=== PATIENT | male | born 1955 | race Caucasian/White ===

== ENCOUNTER → 2017-03-02 | Outpatient (CLI) | payer OTHER ==
--- NOTE | 2017-03-02 15:17 | PCVCIMAG ---
EXAM: BILATERAL RENAL ULTRASOUND AND BILATERAL RENAL DUPLEX INDICATION: Hypertension FINDINGS: Right kidney: Length measures 11.9 cm. No hydronephrosis or extensive renal scarring. 1.8 x 1.9 x 2.3 cm benign cyst lower pole. Right renal duplex: Adequate technical quality. No sonographic evidence of renal artery stenosis. The aortic to renal artery ratio is 1.3. The renal vein is patent. Left kidney: Length measures 11.2 cm. No hydronephrosis or extensive renal scarring. 1.6 x 1.7 x 2.0 cm benign cyst mid/lower pole. Incidental note is made of a 1.2 cm echogenic focus with shadowing in the lower pole likely a renal calculus. Left renal duplex: Adequate technical quality. No sonographic evidence of renal artery stenosis. The aortic to renal artery ratio is 1.3. The renal vein is patent. Bladder: No obvious abnormalities. IMPRESSION: No significant renal artery stenosis. No hydronephrosis bilaterally. Probable calculus left lower pole. LOC:[place] [id number]
== END | disposition home or self-care (01) ==
LOC: PCVCIMAG 09:11
PROVIDERS: ATTEND Internal Medicine
DX: I10 Essential (primary) hypertension (principal); N28.1 Cyst of kidney, acquired; E78.00 Pure hypercholesterolemia, unspecified; M19.90 Unspecified osteoarthritis, unspecified site; Z87.442 Personal history of urinary calculi
CPT/HCPCS: 36415; 76770; 93975

== ENCOUNTER → 2019-05-30 | Outpatient (CLI) | payer OTHER ==
[~2019-05-30] MED LIST: REGADENOSON 0.4 MG/5 ML DISP.SYRIN. IV ONE
--- NOTE | 2019-05-30 09:23 | PCVCIMAG ---
APPROVED REPORT Study performed: 05/30/2019 08:01:12 EXAM: Comprehensive 2D, Doppler, and color-flow Echocardiogram Patient Location: Echo lab Status: routine BSA: 2.13 HR: 57 bpmBP: 140/90 mmHg Rhythm: NSR Other Information Study Quality: Adequate Risk Factors: Cardiac Risk Factors: HTN, Hyperlipidemia Indications Dyspnea Fatigue 2D Dimensions IVSd: 10.84 (7-11mm)LVOT Diam: 21.41 (18-24mm) LVDd: 43.41 mm PWd: 13.16 (7-11mm)Ascending Ao: 31.43 (22-36mm) LVDs: 32.88 (25-40mm) Left Atrium: 33.92 (27-40mm) Aortic Root: 34.15 mm LV Single Plane 4CH: 56.99 % LV Single Plane 2CH: 65.16 % Biplane EF: 60.6 % Volumes Left Atrial Volume (Systole) Single Plane 4CH: 46.09 mLSingle Plane 2CH: 46.13 mL LA ESV Index: 22.00 mL/m2 Aortic Valve AoV Peak Jesus.: 1.43 m/s AO Peak Gr.: 8.22 mmHgLVOT Max P.98 mmHg LVOT Max V: 1.00 m/s GRACIELA Vmax: 2.51 cm2 Mitral Valve E/A Ratio: 1.0 MV Decel. Time: 284.65 ms MV E Max Jesus.: 0.82 m/s MV A Jesus.: 0.82 m/s TDI E/Lateral E': 8.20E/Medial E': 10.25 Medial E' Jesus.: 0.08 m/s Lateral E' Jesus.: 0.10 m/s Pulmonary Valve PV Peak Gr.: 2.08 mmHg Pulmonary Vein P Vein S: 0.56 m/sP Vein A: 0.45 m/s P Vein D: 0.44 m/sP Vein A Dur.: 114.2 msec P Vein S/D Ratio: 1.27 Left Ventricle The left ventricle is normal size. There is normal LV segmental wall motion. There is normal left ventricular wall thickness. Left ventricular systolic function is normal. The left ventricular ejection fraction is within the normal range. LVEF is 60-65%. Right Ventricle The right ventricle is normal size. The right ventricular systolic function is normal. Atria The left atrium size is normal. The right atrium size is normal. Aortic Valve The aortic valve is normal in structure. No aortic regurgitation is present. There is no aortic valvular stenosis. Mitral Valve The mitral valve is normal in structure. There is no mitral valve regurgitation noted. No evidence of mitral valve stenosis. Tricuspid Valve The tricuspid valve is normal in structure. There is no tricuspid valve regurgitation noted. Pulmonic Valve The pulmonary valve is normal in structure. There is no pulmonic valvular regurgitation. Great Vessels The aortic root is normal in size. IVC is normal in size and collapses >50% with inspiration. Pericardium There is no pericardial effusion. <Conclusion> The left ventricle is normal size. LVEF is 60-65%. The aortic valve is normal in structure. The mitral valve is normal in structure. The tricuspid valve is normal in structure. The pulmonary valve is normal in structure. There is no pericardial effusion.
--- NOTE | 2019-05-31 12:28 | PCVCIMAG ---
APPROVED REPORT Imaging Protocol: Rest Tc-99m/Stress Tc-99m 1 day Study performed: 05/30/2019 09:03:13 Indication: Dyspnea, Progressive Fatigue Patient Location: Out-Patient Stress Nurse: Randee Villalta RN, Eula Lema RN [place] Tech:Dhruv Drew NMB Ht: 6 ft 1 in Wt: 195 lbs BSA: 2.13 m2 HR: 55 bpm BP: 164/85 mmHg BMI: 25.7 Rhythm: Sinus Bradycardia Medical History Medical History: Age, Hyperlipidemia, HTN Medications: Amlodipine, Atorvastatin, Chlorthalidone, Losartan, Metoprolol Allergies: PCN Resting Data Rest SPECT myocardial perfusion imaging was performed in supine position 45 minutes following the intravenous injection of 11.7 mCi of Tc-99m Sestamibi. Time of rest injection: 0850 Date: 05/30/2019 Administration Route: IV Administration Site: Right Hand Pharmacologic Stress Pharmacologic stress test was performed by injecting Regadenoson 0.4 mg IV push over 10-15 seconds immediately followed by the intravenous injection of 34.4 mCi of Tc-99m Sestamibi. Time of stress injection: 1000 Date: 05/30/2019 Administration Route: IV Administration Site: Right Hand Gated Stress SPECT was performed 45 minutes after stress injection. The images were gated to evaluate regional wall motion and calculate left ventricular ejection fraction. Stress Test Details Stress Test: Pharmacologic stress testing performed using 0.4 mg of regadenoson per 5 mL given IV over 10 seconds. Reason for pharmacologic stress test: Progressive weakness. HRMax Heart Rate (APMHR): 157 bpm Resting HR: 55 bpmTarget HR (85% APMHR): 133 bpm Max HR Achieved: 96 bpm % of APMHR: 61 Recovery HR: 79 bpm BP Resting BP: 164/85 mmHg Max BP: 130/66 mmHg Recovery BP: 130/73 mmHg ECG Resting ECG: Sinus Bradycardia Stress ECG: Sinus Rhythm Arrhythmia: PVC's Recovery ECG: Sinus Rhythm Clinical Reason for Termination: Completed protocol Stress Symptoms: Lightheaded, Dyspnea Symptoms resolved with caffeine. Stress ECG Conclusion 1. Adequate response from intravenous Lexiscan 2. Inadequate heart rate response for ECG diagnosis Study Data Post stress, the left ventricular ejection was 61%.. SSS: 0 SRS: 1 SDS: 0 TID = 1.11. Perfusion There is a medium area of moderately reduced uptake in the entire segment of the inferior wall which is seen on the stress images as well as the resting images. This area thickens and moves normally and is most consistent with attenuation artifact. Nuclear Conclusion ECG Findings: non-diagnostic Clinical Findings: negative for ischemia Nuclear Findings: negative for ischemia Exercise Capacity: not assessed Left Ventricular Function: normal 1. Low risk study based on absence of inducible ischemia 2. Post exercise left ventricular ejection fraction 61% with normal contractility Interpreted by: Samara Dennis MD Electronically Approved: 05/31/2019 12:27:54 <Conclusion> 1. Adequate response from intravenous Lexiscan 2. Inadequate heart rate response for ECG diagnosis
== END | disposition home or self-care (01) ==
LOC: PCVCIMAG 07:45
PROVIDERS: ATTEND Internal Medicine
DX: I10 Essential (primary) hypertension (principal); E78.5 Hyperlipidemia, unspecified; I25.9 Chronic ischemic heart disease, unspecified; Z90.09 Acquired absence of other part of head and neck; Z79.899 Other long term (current) drug therapy
CPT/HCPCS: 78452; 93017; 93306; A9500; J2785